=== PATIENT | female | born 1955 | race Caucasian/White ===

== ENCOUNTER 2023-06-27 13:25 | Inpatient (IN) | payer MEDICARE ==
[~2023-06-27] VITALS: Ht 165.1 cm; Wt 75.7 kg
[2023-06-27 13:28] VITALS: BP 132/74; PULSE 127; RESP 17; TEMP 97.4; O2SAT 98
[2023-06-27] MEDS ORDERED: NACL 0.9% 1,000 ML IV ONE (14:15)
[2023-06-27 14:23] LABS: BASOPHILS % (AUTO) 0.6 % (0.0-2.0); EOSINOPHILS % (AUTO) 0.3 % (0.0-4.0); HEMOGLOBIN 14.2 g/dL (12.0-16.0); LYMPHOCYTES # (AUTO) 0.5 K/uL (2.5-16.5); LYMPHOCYTES % (AUTO) 6.8 % (20.5-51.1); MEAN CORPUSCULAR HEMOGLOBIN 32 pg (27-31); MEAN CORPUSCULAR HGB CONC 36 g/dL (33-37); MEAN CORPUSCULAR VOLUME 88.4 fL (80-94); MONOCYTES # (AUTO) 0.7 K/uL (0.8-1.0); MONOCYTES % (AUTO) 9.2 % (1.7-9.3); NEUTROPHILS # (AUTO) 6.5 K/uL (1.8-7.7); NEUTROPHILS % (AUTO) 83.1 % (42.2-75.2); PLATELET COUNT (AUTO) 280 K/uL (140-450); RED BLOOD CELL COUNT(AUTO) 4.52 MIL/uL (4.20-5.40); RED CELL DISTRIBUTION WIDTH 13.7 % (11.6-13.7); WHITE BLOOD COUNT (AUTO) 7.8 K/uL (4.8-10.8)
[2023-06-27 14:38] LABS: ALBUMIN 2.9 g/dL (3.4-5.0); ANION GAP 14.4 (8-16); CALCIUM 9.1 mg/dL (8.5-10.1); CARBON DIOXIDE 30.5 mmol/L (21-32); CREATININE 1.1 mg/dL (0.6-1.3); TOTAL PROTEIN, SERUM 7.6 g/dL (6.4-8.2)
[2023-06-27 14:47] LABS: THYROID STIMULATING HORMONE 0.37 uIU/mL (0.34-3.74)
[2023-06-27 14:49] LABS: POTASSIUM 1.9 mmol/L (3.5-5.1)
[2023-06-27 15:00] LABS: MAGNESIUM 1.5 mg/dL (1.8-2.4); PHOSPHORUS 2.8 mg/dL (2.5-4.9)
[2023-06-27] MEDS ORDERED: KCL 20 MEQ IN 100 mL PREMIX 100 ML IV ONE (15:00)
[2023-06-27] MEDS ORDERED: POTASSIUM CHLORIDE 10 MEQ TABER PO ONE (15:00)
[2023-06-27 15:02] LABS: INR 0.93 (0.8-1.2); PARTIAL THROMBOPLASTIN TIME 26.3 secs (22-35.6); PROTHROMBIN TIME 9.8 secs (10.8-13.4)
[2023-06-27] MEDS ORDERED: KETOROLAC 30 MG/ML VIAL IVP ONE (15:05)
[2023-06-27] MEDS ORDERED: MAG SULF 2000 MG/WATER PREMIX 50 ML IV ONE (15:05)
[2023-06-27] MEDS ORDERED: predniSONE 20 MG TAB PO ONE (16:00)
[2023-06-27 18:30] VITALS: BP 110/66; PULSE 78; RESP 18; TEMP 97.2; O2SAT 95
[2023-06-27 20:00] VITALS: BP 108/75; PULSE 73; PULSE 75; RESP 18; TEMP 98.5; O2SAT 98
[2023-06-27 21:55] VITALS: PULSE 72; RESP 17; O2SAT 98
[2023-06-27 22:22] VITALS: PULSE 72; RESP 17; O2SAT 98
[2023-06-27 22:51] LABS: ANION GAP 12.7 (8-16); CALCIUM 8.3 mg/dL (8.5-10.1); CARBON DIOXIDE 28.8 mmol/L (21-32); CREATININE 0.9 mg/dL (0.6-1.3)
[2023-06-27 22:53] LABS: POTASSIUM 2.5 mmol/L (3.5-5.1)
[2023-06-27] MEDS ORDERED: KCL 20 MEQ IN 100 mL PREMIX 200 ML IV ONE (23:05)
[2023-06-28] VITALS: BP 107/67; PULSE 70; PULSE 71; RESP 20; TEMP 99.1; O2SAT 95
[2023-06-28 04:00] VITALS: BP 126/99; PULSE 70; PULSE 71; RESP 17; TEMP 97.6; O2SAT 96
[2023-06-28 08:00] VITALS: BP 127/68; PULSE 70; PULSE 76; RESP 18; TEMP 98.7; O2SAT 100
[2023-06-28] MEDS ORDERED: MAG SULF 2000 MG/WATER PREMIX 50 ML IV SCH (09:00)
[2023-06-28 11:15] LABS: BASOPHILS % (AUTO) 0.1 % (0.0-2.0); EOSINOPHILS % (AUTO) 0.1 % (0.0-4.0); HEMATOCRIT 36.4 % (36-48); LYMPHOCYTES # (AUTO) 0.5 K/uL (2.5-16.5); LYMPHOCYTES % (AUTO) 9.7 % (20.5-51.1); MEAN CORPUSCULAR HEMOGLOBIN 32 pg (27-31); MEAN CORPUSCULAR HGB CONC 36 g/dL (33-37); MEAN CORPUSCULAR VOLUME 88.1 fL (80-94); MONOCYTES # (AUTO) 0.3 K/uL (0.8-1.0); MONOCYTES % (AUTO) 5.4 % (1.7-9.3); NEUTROPHILS # (AUTO) 4.7 K/uL (1.8-7.7); NEUTROPHILS % (AUTO) 84.7 % (42.2-75.2); PLATELET COUNT (AUTO) 293 K/uL (140-450); RED BLOOD CELL COUNT(AUTO) 4.13 MIL/uL (4.20-5.40); RED CELL DISTRIBUTION WIDTH 13.6 % (11.6-13.7); WHITE BLOOD COUNT (AUTO) 5.6 K/uL (4.8-10.8)
[2023-06-28 11:30] LABS: ALBUMIN 2.6 g/dL (3.4-5.0); ANION GAP 11.4 (8-16); CALCIUM 8.3 mg/dL (8.5-10.1); TOTAL BILIRUBIN 0.7 mg/dL (0.0-1.0); TOTAL PROTEIN, SERUM 6.9 g/dL (6.4-8.2)
[2023-06-28 11:31] LABS: POTASSIUM 2.4 mmol/L (3.5-5.1)
[2023-06-28] MEDS ORDERED: POTASSIUM CHLORIDE 10 MEQ TABER PO SCH (11:52)
[2023-06-28 12:00] VITALS: BP 103/56; PULSE 75; PULSE 77; RESP 18; TEMP 97.5; O2SAT 95
[2023-06-28] MEDS ORDERED: MAG SULF 2000 MG/WATER PREMIX 100 ML IV SCH ×2 (12:00→14:30)
[2023-06-28] MEDS: POTASSIUM CHLORIDE 10 MEQ TABER PO SCH ×2 (13:17→15:19)
[2023-06-28] MEDS: ACETAMINOPHEN 325 MG TAB PO PRN ×2 (15:56→20:42)
[2023-06-28 16:00] VITALS: BP 136/78; PULSE 79; RESP 18; TEMP 98.3; O2SAT 96
[2023-06-28] MEDS ORDERED: POTASSIUM CHLORIDE 40 MEQ, LIDOCAINE 1% 25 MG in NACL 0.9% 250 ML IV SCH (17:00)
[2023-06-28 20:00] VITALS: BP 110/58; PULSE 73; PULSE 81; PULSE 83; RESP 16; TEMP 98.3; O2SAT 97
[2023-06-29] VITALS (7 sets, daily range): BP systolic 116–126; BP diastolic 74–80; PULSE 63–78; RESP 17–20; TEMP 96.8–99; O2SAT 96–98
[2023-06-29] MEDS: ACETAMINOPHEN 325 MG TAB PO PRN ×2 (04:33→10:48)
[2023-06-29 06:00] LABS: APPEARANCE,URINE CLEAR (CLEAR); BILIRUBIN,URINE NEGATIVE (NEGATIVE); BLOOD, URINE TRACE-I (NEGATIVE); COLOR,URINE YELLOW (YELLOW); LEUKOCYTE ESTERASE ,URINE 2+ (NEGATIVE); NITRITE, URINE NEGATIVE (NEGATIVE); PH,URINE 6.5 (5.0-9.0); PROTEIN,URINE NEGATIVE (NEGATIVE); UGLUCOSE NEGATIVE (NEGATIVE); UROBILINOGEN,URINE 0.2 EU/dL (0.2 - 1)
[2023-06-29 06:12] LABS: BACTERIA,URINE >30 (MANY) /HPF (None Seen); MUCUS,URINE 1+ /LPF (None Seen); SQUAMOUS EPITHELIAL CELL,UR 20-50 /LPF (0-3 (FEW)); WBC,URINE 20-60 /HPF (0-5)
[2023-06-29 07:18] LABS: BASOPHILS % (AUTO) 0.5 % (0.0-2.0); EOSINOPHILS # (AUTO) 0.1 K/uL (0-0.4); LYMPHOCYTES % (AUTO) 19.6 % (20.5-51.1); MEAN CORPUSCULAR HEMOGLOBIN 32 pg (27-31); MEAN CORPUSCULAR HGB CONC 35 g/dL (33-37); MEAN CORPUSCULAR VOLUME 89.2 fL (80-94); MONOCYTES # (AUTO) 0.4 K/uL (0.8-1.0); NEUTROPHILS # (AUTO) 3.5 K/uL (1.8-7.7); NEUTROPHILS % (AUTO) 70.9 % (42.2-75.2); PLATELET COUNT (AUTO) 260 K/uL (140-450); RED BLOOD CELL COUNT(AUTO) 3.81 MIL/uL (4.20-5.40); RED CELL DISTRIBUTION WIDTH 13.7 % (11.6-13.7); WHITE BLOOD COUNT (AUTO) 4.9 K/uL (4.8-10.8)
[2023-06-29 07:45] LABS: ALBUMIN 2.5 g/dL (3.4-5.0); ANION GAP 8.9 (8-16); CALCIUM 8.5 mg/dL (8.5-10.1); CARBON DIOXIDE 29.2 mmol/L (21-32); CREATININE 0.9 mg/dL (0.6-1.3); POTASSIUM 3.1 mmol/L (3.5-5.1); TOTAL BILIRUBIN 0.6 mg/dL (0.0-1.0); TOTAL PROTEIN, SERUM 6.3 g/dL (6.4-8.2)
[2023-06-29] MEDS ORDERED: POTASSIUM CHLORIDE 10 MEQ TABER PO SCH (09:00)
== END 2023-06-29 12:55 | disposition home or self-care (01) | DRG 641 ==
LOC: MED 13:25 → MMU 16:23 → MTU 17:54 → OBSVTOIN 06-28 12:47
PROVIDERS: ADMIT Student in an Organized Health Care Education/Training Program; ATTEND Student in an Organized Health Care Education/Training Program
DX: E87.6 Hypokalemia (principal); E46 Unspecified protein-calorie malnutrition; E83.42 Hypomagnesemia; E03.9 Hypothyroidism, unspecified; Z90.49 Acquired absence of other specified parts of digestive tract; I10 Essential (primary) hypertension; Z68.27 Body mass index [BMI] 27.0-27.9, adult
CPT/HCPCS: 96361; 96365; 96366; 96375; 99291; G0378; 36415; 71045; 71275; 73110; 80048; 80053; 81001; 82550; 83735; 83880; 84100; 84443; 84484; 85025; 85379; 85610; 85730; 87081; 87086; 93005; J1885; J2001; J3475; J3480; J7030; J7512; Q9967